=== PATIENT | female | born 1945 | race Caucasian/White ===

== ENCOUNTER 2017-10-31 10:35 | Inpatient (IN) ==
--- NOTE | 2017-10-31 11:20 | Emergency Department Note ---
Disposition Clinical Impression: Diverticulitis Disposition: Admitted As Inpatient Condition: Fair General Adult HPI - General Chief complaint: ED Abdominal Pain Stated complaint: nausea,constipation Time Seen by Provider: 10/31/17 10:42 Source: patient Mode of arrival: ambulatory Limitations: no limitations Nursing Notes Reviewed: Yes Vital Signs Reviewed: Yes - History of Present Illness HPI Narrative: Patient is a 72-year-old female presenting with abdominal pain, constipation and nausea. Patient has history of diverticulitis and bowel resection 45 years ago. Patient states that abdominal pain has been ongoing for the past 2 weeks permissively getting worse, located in the left lower quadrant initially and has radiated currently into the right lower quadrant, described as a sharp ache that is exacerbated with any movement and palpation. She was seen in the emergency department on 10/28/2017, after calling her PCP who directed her to the ER, and had a CAT scan which showed diverticulitis without evidence of abscess or perforation and was discharged at that point in time with Jovanny Beck. Patient states that over the past 3 days she webster also developed nausea with one episode of vomiting, was only able to take one dose of her medications and has been intolerant since that time. She also admits to 7 days without a bowel movement. She currently takes [place] daily for joint pain. She states that she is tried Linzess/ Amitiza per her PCP as well. Patient denies chills, fever, hematemesis, chest pain, shortness of breath, weakness, numbness, tingling. Patient states that she has had multiple episodes of diverticulitis in the past , had been admitted in the past, and stated repeatedly that she would need to be admitted today as she does not feel as though she would be able to manage her care at home, as she lives alone. Pain Scale: 8 - Related Data Home Medications Medication Instructions Recorded Confirmed Atenolol [Tenormin] 50 mg PO DAILY 03/08/17 03/08/17 Doxepin HCl 75 mg PO DAILY 03/08/17 03/08/17 Fluticasone Propionate Nasal 1 spr NS BID 03/08/17 03/08/17 [Flonase] HYDROcodone/Acet 5/325 mg [[place] 1 tab PO Q6H 03/08/17 03/08/17 5-325 mg] LORazepam [Ativan] 1 mg PO BID 03/08/17 03/08/17 Linaclotide [Linzess] 72 mcg PO DAILY 03/08/17 03/08/17 Pravastatin Sodium [Pravachol] 20 mg PO DAILY 03/08/17 03/08/17 Sertraline [Zoloft] 100 mg PO DAILY 03/08/17 03/08/17 Previous Rx's Medication Instructions Recorded Ciprofloxacin [Cipro] 500 mg PO BID #20 tablet 10/28/17 HYDROcodone/Acet 5/325 mg [[place] 1 tab PO Q6H PRN 2 Days #8 tab 10/28/17 5-325 mg] metroNIDAZOLE [Flagyl] 500 mg PO TID #30 tablet 10/28/17 Allergies Allergy/AdvReac Type Severity Reaction Status Date / Time codeine Allergy Swelling Verified 10/31/17 10:41 of Lip/Tongue/Throat Penicillins Allergy Swelling Verified 10/31/17 10:41 of Lip/Tongue/Throat prednisone Allergy Itching Verified 10/31/17 10:41 acetaminophen [From Percocet] AdvReac Itching Verified 10/31/17 10:41 Hydromorphone [From Dilaudid] AdvReac Flushing Verified 10/31/17 10:41 Oxycodone [From Percocet] AdvReac Itching Verified 10/31/17 10:41 All systems ED: reviewed and negative except as stated. Review of Systems: As Per HPI Constitutional: Denies: fever, chills, weakness Cardiovascular: Denies: chest pain, palpitations, dyspnea on exertion, syncope Respiratory: Denies: cough, dyspnea, wheezes Gastrointestinal: Reports: abdominal pain, nausea, vomiting, constipation. Denies: diarrhea, hematemesis, melena, hematochezia Genitourinary: Denies: urgency, dysuria, frequency, hematuria Musculoskeletal: Reports: back pain (chronic) Integumentary: Denies: rash Neurological: Denies: headache, weakness, numbness, confusion Psychiatric: Reports: depression Endocrine: Denies: fatigue Past Medical History - Past Medical History Medical history: Reports: arthritis, asthma, COPD, hyperlipidemia, hypertension Surgical history: Reports: orthopedic, other, sinus surgery Psychiatric history: Reports: depression - Social History Smoking Status: Never smoker Smokeless Tobacco Status: No Alcohol use: Reports: none Drug use: Reports: none Physical Exam - General Limitations: no limitations General appearance: alert, in no apparent distress - Head Head exam: atraumatic, normocephalic - Eye Eye exam: Present: normal appearance, EOMI - ENT ENT exam: normal exam, mucous membranes moist - Neck Neck exam: Present: normal inspection - Chest Chest inspection: Present: normal inspection, symmetric chest wall rise - Respiratory Respiratory exam: Present: normal lung sounds bilaterally. Absent: respiratory distress, wheezes - Cardiovascular Cardiovascular exam: Present: regular rate, normal rhythm - Abdominal Exam Abdominal exam: Present: soft, tenderness (to the LLQ, throughout the RLQ, diffuse tenderness throughout), normal bowel sounds. Absent: distention, guarding, rebound, rigidity - Extremities Exam Extremities exam: Present: normal inspection, normal capillary refill. Absent: tenderness - Expanded Lower Extremity Exam Neurovascular/Tendon exam: Present: normal capillary refill. Absent: pulse deficit - Neurological Exam Neurological exam: Present: alert, oriented X3 - Psychiatric Psychiatric exam: Present: normal affect - Skin Skin exam: Present: warm, dry, intact Course Course Narrative: We will order a CBC, BMP, LFT, lipase, EKG, CT noncontrast of the abdomen and pelvis for further evaluation. Vital Signs Temperature 98.1 F 10/31/17 10:38 Pulse Rate 88 10/31/17 10:38 Respiratory Rate 16 10/31/17 10:38 Blood Pressure 131/88 10/31/17 10:38 O2 Sat by Pulse Oximetry 96 10/31/17 10:38 Temperature 98.1 F 10/31/17 10:42 Pulse Rate 89 10/31/17 12:53 Respiratory Rate 16 10/31/17 12:53 Blood Pressure 140/81 10/31/17 12:53 O2 Sat by Pulse Oximetry 93 10/31/17 12:53 Oxygen Delivery Oxygen Delivery Room Air Medical Decision Making - [facility] Narrative Medical decision making narrative: Patient is a 72-year-old female presented with abdominal pain, nausea, constipation. While emergency department, patient was evaluated with CBC, BMP, EKG, CT noncontrast of the abdomen and pelvis, LFT and lipase. Laboratory results showed unremarkable CBC, BMP, LFT and lipase with in normal limits. While in the emergency department, patient has remained afebrile with normal vital signs, patient has appeared tearful throughout the emergency department stay, as she "has to be admitted ". It was discussed at length at the beginning of the visit, that the workup and decision to admit would be based upon further workup, medical necessity and patient's ability to take medications at home. While in the emergency department, patient was given a total of 8 mg IV Zofran, Tylenol 1000 mg by mouth with fluids. Overall patient continues to have some nausea, but feels as though pain overall has decreased. CT of the abdomen and pelvis showed stool throughout, with diffuse colonic diverticulosis with continued mild distal transverse colon diverticulitis. With this finding, patient's inability to take medication at home, failed outpatient therapy, it was discussed with the patient that at this point in time it is best for her to be admitted for further treatment. Patient was discussed with hospitalist at 1331, Dr. Reynaga and has accepted patient. Will start Cipro and Flagyl antibiotics now. - Medical Records Medical records reviewed: Yes I reviewed the patient's medical records. - Lab Data Lab results reviewed: Yes I reviewed the patient's lab results. Result diagrams: 10/31/17 11:19 10/31/17 11:19 Lab Results 10/31/17 10/31/17 10/31/17 Range/Units 11:19 11:19 12:04 WBC 7.8 (4.3-11.1) K/mcL RBC 4.48 (3.82-4.97) M/mcL Hgb 13.6 (11.5-15.4) g/dL Hct 40.9 (35.3-44.9) % MCV 91.3 (83.0-100.0) fL MCH 30.4 (28.0-33.3) pg MCHC 33.3 (31.6-35.5) g/dL RDW 12.6 (11.5-14.5) % Plt Count 289 (140-400) K/mcL MPV 9.3 L (9.4-12.4) fL Immature Gran % 0.3 (0-4) % Seg Neutrophils % 75.9 % Lymphocytes % 13.2 % Monocytes % 8.3 % Eosinophils % 1.7 % Basophils % 0.6 % Neutrophils # 6.0 (1.6-8.9) K/mcL Lymphocytes # 1.0 (0.6-4.6) K/mcL Monocytes # 0.7 (0.0-1.3) K/mcL Eosinophils # 0.1 (0.0-0.6) K/mcL Basophils # 0.1 (0.0-0.2) K/mcL Sodium 135 L (136-145) mEq/L Potassium 3.8 (3.5-5.1) mEq/L Chloride 101 (98-107) mEq/L Carbon Dioxide 25 (23-29) mEq/L BUN 12 (8-23) mg/dL Creatinine 0.66 (0.60-1.20) mg/dL Est GFR ( Amer) > 60 (> 60) Est GFR (Non-Af Amer) > 60 (> 60) BUN/Creatinine Ratio 18 (6-26) Glucose 96 (70-105) mg/dL Calculated Osmolality 280 (280-300) Calcium 9.6 (8.6-10.3) mg/dL Total Bilirubin 0.4 (0.3-1.0) mg/dL Direct Bilirubin 0.1 (0.0-0.2) mg/dL Indirect Bilirubin 0.3 (0.0-1.2) mg/dL AST 14 (13-39) Units/L ALT 8 (7-52) Units/L Alkaline Phosphatase 68 (34-104) Units/L Serum Total Protein 7.1 (6.4-8.9) g/dL Albumin 4.2 (3.5-5.7) g/dL Globulin 2.9 (2.4-3.5) g/dL Albumin/Globulin Ratio 1.4 (1.1-2.2) Lipase 7 L (11-82) Units/L Urine Color Yellow (Yellow) Urine Clarity Cloudy A (Clear) Urine pH 6.0 (5.0-8.0) pH Units Ur Specific [place] 1.012 (1.010-1.025) Urine Protein Negative (Neg-Trace) mg/dL Urine Glucose (UA) Normal (Normal) mg/dL Urine Ketones Negative (Negative) mg/dL Urine Blood Negative (Negative) Urine Nitrite Negative (Negative) Urine Bilirubin Negative (Negative) Urine Urobilinogen Normal (Normal) mg/dL Ur Leukocyte Esterase Moderate H (Negative) Urine Microscopic RBC 0-3 (0-3) per hpf Urine Microscopic WBC 5-15 H (0-3) per hpf Ur Squamous Epith Cells Many H (None-Few) per lpf Urine Bacteria None Seen (None-Few) per hpf Hyaline Casts None Seen (None-Few) per lpf Ur Culture Indicated? NO. A (NO) - Radiology Data Radiology results reviewed: Yes I reviewed the patient's radiology results. Abdomen/Pelvis CT 10/31/17 11:23 IMPRESSION: Severe colonic diverticulosis with new mild uncomplicated diverticulitis of the distal transverse colon D/ / Bg Campos MD / Bg Campos MD Interpreting Provider: Bg Campos MD - EKG Data EKG #1 EKG attestation: Yes I reviewed and interpreted this EKG. EKG results narrative: EKG performed on 10/31/2017 1141 with ventricular rate of 93 bpm, regular rhythm, left axis deviation, no evidence of hypertrophy, MO interval at 142, QRS duration 90, QT 352, QTC of 402, T-wave inversion at V2, no ST elevation. When compared to previous EKG there are: no significant changes (from 05/19/2011) S.B.A.Cheikh. - S.B.ADayron Situation: Demographics, MOA Background: Presenting Complaint, Relevant PMH, Meds, & Allergies Assessment: Vital Signs, Course and respsone to treatment, Patient/Family Expectation, Pertinant Lab Results Recommendation: Recommendation based on pending studies, treatments, or consults S.B.ADayron Report Given to: Dr. Juhi Inman Repor Time: 13:29 (accepted)
[2017-10-31] MEDS ORDERED: 0.9 % Sodium Chloride 1,000 ML IVC ONE (11:22)
[2017-10-31] MEDS ORDERED: Ondansetron 4 MG/2 ML VIAL IVP ONE ×2 (11:22→12:36)
[2017-10-31 11:32] LABS: Basophils # 0.1 K/mcL (0.0-0.2); Basophils % 0.6 %; Eosinophils # 0.1 K/mcL (0.0-0.6); Eosinophils % 1.7 %; Hematocrit 40.9 % (35.3-44.9); Hemoglobin 13.6 g/dL (11.5-15.4); Immature Granulocytes % 0.3 % (0-4); Lymphocytes % 13.2 %; Mean Corpuscular HGB Conc 33.3 g/dL (31.6-35.5); Mean Corpuscular Hemoglobin 30.4 pg (28.0-33.3); Mean Corpuscular Volume 91.3 fL (83.0-100.0); Mean Platelet Volume 9.3 fL (9.4-12.4); Monocytes # 0.7 K/mcL (0.0-1.3); Monocytes % 8.3 %; Platelet Count 289 K/mcL (140-400); Red Blood Count 4.48 M/mcL (3.82-4.97); Red Cell Distribution Width 12.6 % (11.5-14.5); Segmented Neutrophils % 75.9 %
[2017-10-31 11:53] LABS: Alanine Aminotransferase 8 Units/L (7-52); Albumin 4.2 g/dL (3.5-5.7); Albumin/Globulin Ratio 1.4 (1.1-2.2); Alkaline Phosphatase 68 Units/L (34-104); Aspartate Amino Transferase 14 Units/L (13-39); BUN/Creatinine Ratio 18 (6-26); Bilirubin,Direct 0.1 mg/dL (0.0-0.2); Bilirubin,Indirect 0.3 mg/dL (0.0-1.2); Bilirubin,Total 0.4 mg/dL (0.3-1.0); Blood Urea Nitrogen 12 mg/dL (8-23); Calcium 9.6 mg/dL (8.6-10.3); Carbon Dioxide 25 mEq/L (23-29); Chloride 101 mEq/L (98-107); Globulin 2.9 g/dL (2.4-3.5); Glucose 96 mg/dL (70-105); Lipase 7 Units/L (11-82); Osmolality,Calculated 280 (280-300); Potassium 3.8 mEq/L (3.5-5.1); Sodium 135 mEq/L (136-145); Total Protein 7.1 g/dL (6.4-8.9); eGFR For Non-African Americans > 60 (> 60)
[2017-10-31 12:11] LABS: Bilirubin,Urine Negative (Negative); Blood,Urine Negative (Negative); Clarity,Urine Cloudy (Clear); Color,Urine Yellow (Yellow); Glucose,Urine (UA) Normal (Normal); Ketones,Urine Negative (Negative); Leukocyte Esterase,Urine Moderate (Negative); Nitrite,Urine Negative (Negative); Protein,Urine Negative (Neg-Trace); Specific Gravity,Urine 1.012 (1.010-1.025); Urobilinogen,Urine Normal (Normal)
[2017-10-31 12:14] LABS: Bacteria,Urine None Seen per hpf (None-Few); Hyaline Casts,Urine None Seen per lpf (None-Few); RBC,Urine 0-3 per hpf (0-3); Squamous Epithelial Cell,Urine Many per lpf (None-Few)
[2017-10-31] MEDS ORDERED: MetroNIDAZOLE 500 MG/100 ML 500 MG/100 ML BAG IVPB ONE (13:30)
[2017-10-31] MEDS ORDERED: Naloxone 0.4 MG/ML INJ IVP PRN (13:30)
[2017-10-31] MEDS ORDERED: OXYCODONE Oral CONC 10 MG/0.5 ML ORAL.SYG SL PRN (13:50)
[2017-10-31] MEDS ORDERED: Fluconazole 100 MG TABLET PO ONE (13:52)
--- NOTE | 2017-10-31 14:09 | Internal Med History&Physical ---
Date of Encounter: 10/31/17 Time of Encounter: 13:40 Internal Medicine - H&P: HPI Chief complaint: Abdominal pain, nausea, vomiting History of present illness: Ms. Crowder is a 72 year old female with past medical history of recurrent diverticulitis status post partial colectomy remotely, asthma/COPD, HTN, HLD presented to the ED with left sided abdominal pain associated with nausea and vomiting. Sharp, localized, nonradiating, no aggravating or relieving factor. She however was constipated for the last 7 days. Denies dysuria, hematuria, urinary frequency. No fever/chills. She was seen in the ED 3 days ago for the same symptom when the CT scan suggested findings of diverticulitis vs. colitis. She was discharged home on PO cipro/flagyl but she was unable to tolerate them and vomited them every single time she tried. She has only been able to sip on drinks for the last 3 days. She also states that she developed some vaginal discharges that she was previously diagnosed with yeast infection. In the ED, she was afebrile and hemodynamically stable. Rapport was essentially unchanged from 3 days ago. Urinalysis is again positive for moderate leukocyte esterase. Patient was given IV Tylenol, IV fluid, IV Cipro/Flagyl, and admitted for further management. Of note, a verified with the patient directly whether she was allergic to oxycodone. She states that she is allergic to hydromorphone and codeine but is not aware of her allergy to oxycodone. Past Med Surg Social Fam HX - Past Medical History Attestation: Yes The following information was validated with the patient. Medical history: arthritis, asthma, COPD, hyperlipidemia, hypertension Psychiatric history: depression - Past Surgical History Surgical History: orthopedic, other, sinus surgery Additional surgical history: bowel resection. ortho- bilateral feet - Social History Smoking Status: Never smoker Smokeless Tobacco Status: No Alcohol use: none Drug use: none Internal Medicine - H&P: Meds Atenolol [Tenormin] 50 mg PO DAILY 03/08/17 [History] Doxepin HCl 75 mg PO DAILY 03/08/17 [History] Fluticasone Propionate Nasal [Flonase] 1 spr NS BID 03/08/17 [History] HYDROcodone/Acet 5/325 mg [[place] 5-325 mg] 1 tab PO Q6H 03/08/17 [History] LORazepam [Ativan] 1 mg PO BID 03/08/17 [History] Linaclotide [Linzess] 72 mcg PO DAILY 03/08/17 [History] Pravastatin Sodium [Pravachol] 20 mg PO DAILY 03/08/17 [History] Sertraline [Zoloft] 100 mg PO DAILY 03/08/17 [History] Ciprofloxacin [Cipro] 500 mg PO BID #20 tablet 10/28/17 [Rx] HYDROcodone/Acet 5/325 mg [[place] 5-325 mg] 1 tab PO Q6H PRN 2 Days #8 tab [Rx] metroNIDAZOLE [Flagyl] 500 mg PO TID #30 tablet 10/28/17 [Rx] 3 Allergy/AdvReac Type Severity Reaction Status Date / Time codeine Allergy Swelling Verified 10/31/17 10:41 of Lip/Tongue/Throat Penicillins Allergy Swelling Verified 10/31/17 10:41 of Lip/Tongue/Throat prednisone Allergy Itching Verified 10/31/17 10:41 acetaminophen [From Percocet] AdvReac Itching Verified 10/31/17 10:41 Hydromorphone [From Dilaudid] AdvReac Flushing Verified 10/31/17 10:41 Oxycodone [From Percocet] AdvReac Itching Verified 10/31/17 10:41 All Systems PM: A 10-system review of systems was performed and is negative for pertinent findings except as documented above in the HPI. - Constitutional Vitals: Temp Pulse Resp BP Pulse Ox 98.1 F 89 16 140/81 93 10/31/17 10:42 10/31/17 12:53 10/31/17 12:53 10/31/17 12:53 10/31/17 12:53 Exam: General: Alert and oriented, mild distress due to discomfort HEENT:EOM, pupils equal, round, and reactive. Cardiovascular:Normal S1 & S2, no murmurs or gallops. No JVD. Pulse regular. Lungs:Normal breath sounds, no wheezes or crackles. Abdomen:Soft, LUQ tenderness without rebound/guarding, no rigidity. Extremities:No deformity, no edema or tenderness, no joint swelling. Neurological:Normal cognition and motor skills. Skin:Normal color, no rash, no lesions. Pulses:Carotid and radial pulses normal +2. Rest of the physical exam is non-contributory Internal Med - H&P Results - Labs CBC & Chem 7: 10/31/17 11:19 10/31/17 11:19 - Assessment and plan (1) Diverticulitis Current Visit: Yes Status: Acute Assessment and plan: Repeat CT scan showed new findings of mild uncompensated diverticulitis of distal transverse colon. She was intolerant to oral antibiotics and had persistent vomiting. Switch Cipro Flagyl to IV Nothing by mouth, IV fluid trial of suppository given prolonged constipation Antiemetics and analgesics as prescribed. Patient does not appear to true allergy to oxycodone so we can use it for breakthrough pain. (2) Hypertension Current Visit: No Status: Chronic Assessment and plan: Resume home meds when reconciled Qualifiers: Qualified Code(s): I10 - Essential (primary) hypertension (3) HLD (hyperlipidemia) Current Visit: No Status: Chronic Assessment and plan: Continue statin Qualifiers: Hyperlipidemia type: unspecified Qualified Code(s): E78.5 - Hyperlipidemia , unspecified (4) DVT prophylaxis Current Visit: Yes Status: Acute Assessment and plan: Sub-cutaneous heparin - Time Spent With Patient Total time spent is greater than 50% in coordination of care (as documented) at patient's floor/unit and/or counseling patient:
[2017-10-31] MEDS ORDERED: LINACLOTIDE 72 MG PO PRN (14:42)
--- NOTE | 2017-10-31 14:43 | Emergency Department Note ---
Disposition Clinical Impression: Diverticulitis Disposition: Admitted As Inpatient Condition: Fair Referrals: Nellie Latif MD [Primary Care Provider] - Abdominal Pain HPI - General Chief Complaint: ED Abdominal Pain Stated Complaint: nausea,constipation Time Seen by Provider: 10/31/17 10:42 Source: patient Mode of arrival: ambulatory Nursing Notes Reviewed: Yes Vital Signs Reviewed: Yes - History of Present Illness Pain Scale: 8 - Related Data Home Medications Medication Instructions Recorded Confirmed Doxepin HCl 75 mg PO DAILY 03/08/17 10/31/17 Fluticasone Propionate Nasal 1 spr NS BID 03/08/17 10/31/17 [Flonase] HYDROcodone/Acet 5/325 mg [[place] 0.5 - 1 tab PO BID PRN 03/08/17 10/31/17 5-325 mg] Pravastatin Sodium [Pravachol] 20 mg PO DAILY 03/08/17 10/31/17 Sertraline [Zoloft] 150 mg PO DAILY 03/08/17 10/31/17 Etodolac [L[place]] 400 mg PO BID 10/31/17 10/31/17 Hydrochlorothiazide [Microzide] 12.5 mg PO DAILY 10/31/17 10/31/17 LORazepam [Lorazepam] 2 mg PO TID 10/31/17 10/31/17 Linaclotide [Linzess] 72 mg PO DAILY PRN 10/31/17 10/31/17 Previous Rx's Medication Instructions Recorded Ciprofloxacin [Cipro] 500 mg PO BID #20 tablet 10/28/17 metroNIDAZOLE [Flagyl] 500 mg PO TID #30 tablet 10/28/17 Allergies Allergy/AdvReac Type Severity Reaction Status Date / Time codeine Allergy Swelling Verified 10/31/17 10:41 of Lip/Tongue/Throat Penicillins Allergy Swelling Verified 10/31/17 10:41 of Lip/Tongue/Throat prednisone Allergy Itching Verified 10/31/17 10:41 acetaminophen [From Percocet] AdvReac Itching Verified 10/31/17 10:41 Hydromorphone [From Dilaudid] AdvReac Flushing Verified 10/31/17 10:41 Oxycodone [From Percocet] AdvReac Itching Verified 10/31/17 10:41 Constitutional: Denies: fever, chills, weakness Cardiovascular: Denies: chest pain, palpitations, dyspnea on exertion, syncope Respiratory: Denies: cough, dyspnea, wheezes Gastrointestinal: Reports: abdominal pain, nausea, vomiting, constipation. Denies: diarrhea, hematemesis, melena, hematochezia Genitourinary: Denies: urgency, dysuria, frequency, hematuria Musculoskeletal: Reports: back pain (chronic) Integumentary: Denies: rash Neurological: Denies: headache, weakness, numbness, confusion Psychiatric: Reports: depression Endocrine: Denies: fatigue Abdominal Pain PMH - Past Medical History Medical history: Reports: arthritis, asthma, COPD, hyperlipidemia, hypertension Female Surgical History: Reports: other Psychiatric history: Reports: depression - Social History Smoking status: Never smoker Alcohol use: Reports: none Drug use: Reports: none Physical Exam - General Limitations: no limitations General appearance: alert, in no apparent distress Course Vital Signs Temperature 98.1 F 10/31/17 10:38 Pulse Rate 88 10/31/17 10:38 Respiratory Rate 16 10/31/17 10:38 Blood Pressure 131/88 10/31/17 10:38 O2 Sat by Pulse Oximetry 96 10/31/17 10:38 Temperature 98.1 F 10/31/17 10:42 Pulse Rate 89 10/31/17 12:53 Respiratory Rate 16 10/31/17 12:53 Blood Pressure 140/81 10/31/17 12:53 O2 Sat by Pulse Oximetry 93 10/31/17 12:53 Oxygen Delivery Oxygen Delivery Room Air Abdominal Pain - Lab Data Result diagrams: 10/31/17 11:19 10/31/17 11:19 Lab Results 10/31/17 10/31/17 10/31/17 Range/Units 11:19 11:19 12:04 WBC 7.8 (4.3-11.1) K/mcL RBC 4.48 (3.82-4.97) M/mcL Hgb 13.6 (11.5-15.4) g/dL Hct 40.9 (35.3-44.9) % MCV 91.3 (83.0-100.0) fL MCH 30.4 (28.0-33.3) pg MCHC 33.3 (31.6-35.5) g/dL RDW 12.6 (11.5-14.5) % Plt Count 289 (140-400) K/mcL MPV 9.3 L (9.4-12.4) fL Immature Gran % 0.3 (0-4) % Seg Neutrophils % 75.9 % Lymphocytes % 13.2 % Monocytes % 8.3 % Eosinophils % 1.7 % Basophils % 0.6 % Neutrophils # 6.0 (1.6-8.9) K/mcL Lymphocytes # 1.0 (0.6-4.6) K/mcL Monocytes # 0.7 (0.0-1.3) K/mcL Eosinophils # 0.1 (0.0-0.6) K/mcL Basophils # 0.1 (0.0-0.2) K/mcL Sodium 135 L (136-145) mEq/L Potassium 3.8 (3.5-5.1) mEq/L Chloride 101 (98-107) mEq/L Carbon Dioxide 25 (23-29) mEq/L BUN 12 (8-23) mg/dL Creatinine 0.66 (0.60-1.20) mg/dL Est GFR ( Amer) > 60 (> 60) Est GFR (Non-Af Amer) > 60 (> 60) BUN/Creatinine Ratio 18 (6-26) Glucose 96 (70-105) mg/dL Calculated Osmolality 280 (280-300) Calcium 9.6 (8.6-10.3) mg/dL Total Bilirubin 0.4 (0.3-1.0) mg/dL Direct Bilirubin 0.1 (0.0-0.2) mg/dL Indirect Bilirubin 0.3 (0.0-1.2) mg/dL AST 14 (13-39) Units/L ALT 8 (7-52) Units/L Alkaline Phosphatase 68 (34-104) Units/L Serum Total Protein 7.1 (6.4-8.9) g/dL Albumin 4.2 (3.5-5.7) g/dL Globulin 2.9 (2.4-3.5) g/dL Albumin/Globulin Ratio 1.4 (1.1-2.2) Lipase 7 L (11-82) Units/L Urine Color Yellow (Yellow) Urine Clarity Cloudy A (Clear) Urine pH 6.0 (5.0-8.0) pH Units Ur Specific [place] 1.012 (1.010-1.025) Urine Protein Negative (Neg-Trace) mg/dL Urine Glucose (UA) Normal (Normal) mg/dL Urine Ketones Negative (Negative) mg/dL Urine Blood Negative (Negative) Urine Nitrite Negative (Negative) Urine Bilirubin Negative (Negative) Urine Urobilinogen Normal (Normal) mg/dL Ur Leukocyte Esterase Moderate H (Negative) Urine Microscopic RBC 0-3 (0-3) per hpf Urine Microscopic WBC 5-15 H (0-3) per hpf Ur Squamous Epith Cells Many H (None-Few) per lpf Urine Bacteria None Seen (None-Few) per hpf Hyaline Casts None Seen (None-Few) per lpf Ur Culture Indicated? NO. A (NO) Attestation Statement - Attestation Attestation: I, Suman Mckenna, examined this patient and my medical decision-making was reviewed with the [employer] CONT[employer] OPERATOR/PA/Advanced Practice Nurse/Resident Physician. I agree with the documented findings, disposition and treatment plan as described except to the extent set forth below. 72-year-old female presents emergency Department with concerns of persistent nausea and vomiting, abdominal pain. Patient states she was recently diagnosed with diverticulitis by CT of the abdomen 4 days ago.. She is only able to take a couple of her medications over the past few days because of nausea and vomiting. Patient had persistent diverticulitis on repeat CT scan. She does not feel comfortable to return home. She states she will not be able to tolerate by mouth intake at home. She will be admitted for further care and evaluation of diverticulitis
[2017-10-31] MEDS: *HR* LORazepam 1 MG TABLET PO SCH ×2 (16:07→20:04)
[2017-10-31] MEDS: Bisacodyl 10 MG RECTAL SUPPOSITORY RC SCH (16:08)
[2017-10-31] MEDS: 0.9 % Sodium Chloride 1,000 ML IVC SCH (16:09)
[2017-10-31] MEDS: *HR* Heparin 5,000 UNIT/ML VIAL SQ SCH (17:51)
[2017-10-31] MEDS: Ketorolac 15 MG/ML VIAL IVP PRN (20:05)
[2017-10-31] MEDS: MetroNIDAZOLE 500 MG/100 ML 500 MG/100 ML BAG IVPB SCH (23:32)
[2017-10-31] MEDS: Fluticasone Propionate Nasal 50 MCG/SPRAY BOTTLE NS SCH (23:35)
[2017-11-01] MEDS: 0.9 % Sodium Chloride 1,000 ML IVC SCH (02:10)
[2017-11-01] MEDS: *HR* Heparin 5,000 UNIT/ML VIAL SQ SCH ×2 (05:11→18:07)
[2017-11-01 06:13] LABS: Basophils # 0.1 K/mcL (0.0-0.2); Basophils % 0.8 %; Eosinophils # 0.1 K/mcL (0.0-0.6); Eosinophils % 1.8 %; Hematocrit 36.2 % (35.3-44.9); Immature Granulocytes % 0.2 % (0-4); Lymphocytes # 1.1 K/mcL (0.6-4.6); Lymphocytes % 17.6 %; Mean Corpuscular Hemoglobin 29.7 pg (28.0-33.3); Mean Corpuscular Volume 92.8 fL (83.0-100.0); Mean Platelet Volume 9.6 fL (9.4-12.4); Monocytes # 0.6 K/mcL (0.0-1.3); Monocytes % 9.4 %; Neutrophils # 4.3 K/mcL (1.6-8.9); Platelet Count 270 K/mcL (140-400); Red Cell Distribution Width 12.8 % (11.5-14.5); Segmented Neutrophils % 70.2 %
[2017-11-01 06:14] LABS: Hemoglobin 11.6 g/dL (11.5-15.4)
[2017-11-01 06:32] LABS: BUN/Creatinine Ratio 12 (6-26); Blood Urea Nitrogen 8 mg/dL (8-23); Calcium 8.7 mg/dL (8.6-10.3); Carbon Dioxide 27 mEq/L (23-29); Chloride 108 mEq/L (98-107); Glucose 84 mg/dL (70-105); Magnesium 2.1 mg/dL (1.6-2.6); Osmolality,Calculated 288 (280-300); Potassium 3.9 mEq/L (3.5-5.1); Sodium 140 mEq/L (136-145); eGFR For Non-African Americans > 60 (> 60)
[2017-11-01] MEDS: *HR* LORazepam 1 MG TABLET PO SCH ×3 (08:38→21:12)
[2017-11-01] MEDS: hydroCHLOROthiazide 25 MG TABLET PO SCH (08:39)
[2017-11-01] MEDS: MetroNIDAZOLE 500 MG/100 ML 500 MG/100 ML BAG IVPB SCH ×4 (08:40→23:49)
[2017-11-01] MEDS: Bisacodyl 10 MG RECTAL SUPPOSITORY RC SCH (08:40)
[2017-11-01] MEDS: Fluticasone Propionate Nasal 50 MCG/SPRAY BOTTLE NS SCH ×2 (08:41→21:22)
[2017-11-01] MEDS: Ketorolac 15 MG/ML VIAL IVP PRN ×2 (08:47→17:59)
--- NOTE | 2017-11-01 10:07 | Internal Med Progress Note ---
Date of Encounter: 11/01/17 Time of Encounter: 09:00 - Assessment and plan (1) Diverticulitis Current Visit: Yes Status: Acute Assessment and plan: Was first seen the ED 4 days ago and was discharged home with oral antibiotics but came back yesterday. Repeat CT scan showed new findings of mild uncompensated diverticulitis of distal transverse colon. She was intolerant to oral antibiotics and had persistent vomiting. Improving with IV Cipro/flagyl D2 trial of clears today, continue IV fluid Antiemetics and analgesics as prescribed. Patient does not appear to true allergy to oxycodone so we can use it for breakthrough pain. (2) Constipation Current Visit: Yes Status: Acute Assessment and plan: Significant stool burden noted on the CT, did not had bowel movement despite suppository will try lactulose today and if not successful, will have to attempt enema Qualifiers: Constipation type: unspecified constipation type Qualified Code(s): K59.00 - Constipation, unspecified (3) Hypertension Current Visit: No Status: Chronic Assessment and plan: Resume home meds Qualifiers: Qualified Code(s): I10 - Essential (primary) hypertension (4) HLD (hyperlipidemia) Current Visit: No Status: Chronic Assessment and plan: Continue statin Qualifiers: Hyperlipidemia type: unspecified Qualified Code(s): E78.5 - Hyperlipidemia , unspecified (5) DVT prophylaxis Current Visit: Yes Status: Acute Assessment and plan: Subcutaneous heparin - Subjective Interval history: States that she feels a little bit better than yesterday, nausea has significantly improved. Denies fever/chills. Has not had a bowel movement yet despite taking suppository; just had "hard pepples" coming out. - Constitutional Vitals: Temp Pulse Resp BP Pulse Ox 98.2 F 71 15 112/73 92 11/01/17 06:46 11/01/17 06:46 11/01/17 06:46 11/01/17 06:46 11/01/17 06:46 Exam: General: Alert and oriented, not in distress Cardiovascular:Normal S1 & S2, no murmurs or gallops. No JVD. Pulse regular. Lungs:Normal breath sounds, no wheezes or crackles. Abdomen:Soft, minimal LUQ tenderness without rebound/guarding, no rigidity. Internal Medicine: Result - Labs CBC & Chem 7: 11/01/17 04:57 07/30/18 04:57 Labs: Short CBC 11/01/17 Range/Units 04:57 WBC 6.1 (4.3-11.1) K/mcL Hgb 11.6 D (11.5-15.4) g/dL Hct 36.2 (35.3-44.9) % Plt Count 270 (140-400) K/mcL Neutrophils # 4.3 (1.6-8.9) K/mcL BMP 11/01/17 04:57 Sodium 140 Potassium 3.9 Chloride 108 H Carbon Dioxide 27 BUN 8 Creatinine 0.65 Glucose 84 Calcium 8.7 Consult Discharge Plan - Plan Referrals: Nellie Latif MD [Primary Care Provider] -
[2017-11-01] MEDS: Lactulose Oral Soln 20 GM/30 ML UDC PO SCH ×2 (12:01→21:12)
[2017-11-01] MEDS: *HR* Promethazine 25 MG/ML VIAL IVP PRN (13:03)
--- NOTE | 2017-11-01 17:22 | Electrocardiograph Report ---
[place] [id number] Test Date: 2017-10-31 Pat Name: Samantha Crowder Department: 103 Room: 3B23 Gender: F [employer] Identification Technician: KALIN : 1945 Requested By: Nilo Mike Order Number: [id number] Reading MD: Sarah Godoy Measurements Intervals [place] Rate: 93 P: 63 AK: 142 QRS: -22 QRSD: 90 T: 28 QT: 352 QTc: 402 Interpretive Statements SINUS RHYTHM WITH OCCASIONAL SUPRAVENTRICULAR PREMATURE COMPLEXES BORDERLINE LEFT AXIS DEVIATION [QRS AXIS < -20] Electronically Signed On 11-01-2017 17:21:11 EDT by Sarah Godoy
[2017-11-02] MEDS: *HR* Heparin 5,000 UNIT/ML VIAL SQ SCH ×2 (06:56→17:21)
[2017-11-02] MEDS: Lactulose Oral Soln 20 GM/30 ML UDC PO SCH ×2 (08:49→21:34)
[2017-11-02] MEDS: MetroNIDAZOLE 500 MG/100 ML 500 MG/100 ML BAG IVPB SCH (08:50)
[2017-11-02] MEDS: hydroCHLOROthiazide 25 MG TABLET PO SCH (08:50)
[2017-11-02] MEDS: *HR* LORazepam 1 MG TABLET PO SCH ×3 (08:50→23:00)
[2017-11-02] MEDS: Fluticasone Propionate Nasal 50 MCG/SPRAY BOTTLE NS SCH ×2 (09:00→23:03)
[2017-11-02] MEDS: Bisacodyl 10 MG RECTAL SUPPOSITORY RC SCH (09:00)
[2017-11-02] MEDS ORDERED: Glycerin RECTAL Suppository RC ONE (11:58)
--- NOTE | 2017-11-02 16:39 | Internal Med Progress Note ---
Hospitalist Progress Note - Encounter Date of Encounter: 11/02/17 Time of Encounter: 09:35 - Subjective Interval History: Patient was seen and assessed at bedside and 9:35 AM. She reports continued left lower quadrant pain, bilateral flank pain and constipation. She reports chronic constipation for years and states that MiraLAX normally works for her. She denies headache, nausea or vomiting, chest pain or shortness of breath. - Exam Vitals: Temp Pulse Resp BP Pulse Ox 98.5 F 66 16 135/83 94 11/02/17 15:25 11/02/17 15:25 11/02/17 15:25 11/02/17 15:25 11/02/17 15:25 Exam: Pt is alert and awake, oriented, speech is clear, Pt without focal neurological deficits, no facial droop, no pronator drift. PERRL , EOMI, no nystagmus. S1S2 heard without gallops, clicks, murmurs, tachycardia or bradycardia. Lungs are clear throughout, abdomen is soft, obese, tender to palpation in LLQ. No peripheral edema, peripheral pulses +2 in upper and lower extremities. - Assessment and Plan (1) Diverticulitis Current Visit: Yes Status: Acute Assessment and Plan: Repeat CT scan 10/31 showed new findings of mild uncompensated diverticulitis of distal transverse colon. She was intolerant to oral antibiotics and had persistent vomiting, failed outpatient. Switch Cipro Flagyl to po for am doses. Clear liquid diet, advance as tolerated, IV fluid trial of suppository given prolonged constipation, pt having small bowel movements, will add tap water enemas. Antiemetics and analgesics as prescribed. Patient does not appear to true allergy to oxycodone so we can use it for breakthrough pain. Abdomen/Pelvis CT 10/31/17 11:23 IMPRESSION: Severe colonic diverticulosis with new mild uncomplicated diverticulitis of the distal transverse colon D/ / Bg Campos MD / Bg Campos MD Interpreting Provider: Bg Campos MD (2) Hypertension Current Visit: No Status: Chronic Assessment and Plan: Stable. Chronic. Continue current medications. (3) DVT prophylaxis Current Visit: Yes Status: Acute Assessment and Plan: Heparin SQ (4) HLD (hyperlipidemia) Current Visit: Yes Status: Chronic Assessment and Plan: Chronic. Continue home dose of statin . (5) Constipation Current Visit: Yes Status: Chronic Assessment and Plan: Pt with chronic constipation, states that she normally takes Miralax at home. Pt has had suppositories and Lactulose with minimal relief. Miralax restarted. Tap water enema ordered. DVT Prophylaxis: Heparin SQ BID - Time Spent with Patient Total time spent is greater than 50% in coordination of care (as documented) at patient's floor/unit and/or counseling patient: less than 15 minutes Plan of Care Discussed with: nurse Internal Medicine: Result - Labs CBC & Chem 7: 11/01/17 04:57 11/01/17 04:57 Consult Discharge Plan - Plan Referrals: Nellie Latif MD [Primary Care Provider] - 11/04/17 1:30 pm (2) Hypertension Qualifiers: Qualified Code(s): I10 - Essential (primary) hypertension (4) HLD (hyperlipidemia) Qualifiers: Hyperlipidemia type: unspecified Qualified Code(s): E78.5 - Hyperlipidemia, unspecified (5) Constipation Qualifiers: Constipation type: unspecified constipation type Qualified Code(s): K59.00 - Constipation, unspecified
[2017-11-02] MEDS: metroNIDAZOLE 500 MG TABLET PO SCH ×2 (17:21→23:00)
[2017-11-02] MEDS: *HR* Promethazine 25 MG/ML VIAL IVP PRN (21:38)
[2017-11-02] MEDS ORDERED: Sennosides/Docusate Sodium TABLET PO PRN (22:12)
[2017-11-03] MEDS: *HR* Heparin 5,000 UNIT/ML VIAL SQ SCH (05:14)
[2017-11-03] MEDS: Lactulose Oral Soln 20 GM/30 ML UDC PO SCH ×3 (08:19→10:14)
[2017-11-03] MEDS: *HR* Promethazine 25 MG/ML VIAL IVP PRN (08:19)
[2017-11-03] MEDS: metroNIDAZOLE 500 MG TABLET PO SCH ×2 (08:19→14:34)
[2017-11-03] MEDS: *HR* LORazepam 1 MG TABLET PO SCH ×2 (08:30→16:03)
[2017-11-03] MEDS: Bisacodyl 10 MG RECTAL SUPPOSITORY RC SCH (08:31)
[2017-11-03] MEDS: hydroCHLOROthiazide 25 MG TABLET PO SCH (08:31)
[2017-11-03] MEDS: Fluticasone Propionate Nasal 50 MCG/SPRAY BOTTLE NS SCH (09:05)
[2017-11-03] MEDS: Ketorolac 15 MG/ML VIAL IVP PRN (10:08)
[2017-11-03 15:38] VITALS: BP 123/77
--- NOTE | 2017-11-03 15:55 | Discharge Summary ---
Date of Encounter: 11/03/17 Time of Encounter: 09:30 - Discharge Diagnosis (1) Diverticulitis Priority: Primary Status: Acute Assessment and Plan: CT scan 10/31 showed new findings of mild uncompensated diverticulitis of distal transverse colon. She was intolerant to oral antibiotics and had persistent vomiting, failed outpatient. Clear liquid diet, advance as tolerated, IV fluid Pt reports constipation, see above. Antiemetics and analgesics as prescribed. Continue PO antibiotics for discharge. Abdomen/Pelvis CT 10/31/17 11:23 IMPRESSION: Severe colonic diverticulosis with new mild uncomplicated diverticulitis of the distal transverse colon D/ / Bg Campos MD / Bg Campos MD Interpreting Provider: Bg Campos MD (2) Hypertension Priority: Secondary Status: Chronic Assessment and Plan: Chronic. Continue current medications. Qualifiers: Qualified Code(s): I10 - Essential (primary) hypertension (3) DVT prophylaxis Priority: Secondary Status: Acute Assessment and Plan: Heparin SQ BID (4) HLD (hyperlipidemia) Priority: Secondary Status: Chronic Assessment and Plan: Chronic. Continue home medication. Qualifiers: Hyperlipidemia type: unspecified Qualified Code(s): E78.5 - Hyperlipidemia , unspecified (5) Constipation Priority: Secondary Status: Chronic Assessment and Plan: Pt with chronic constipation, states that she normally takes Miralax at home. Pt has had suppositories and Lactulose with minimal relief. Miralax restarted, patient has had senna, milk and molasses enema Patient has been on clear liquid diet, likely there is not enough bulk in the colon to have a normal bowel movement. KUB completed today that was unremarkable, patient remains concerned that she has not had a "normal" bowel movement. We will continue MiraLAX at home, will add senna to medication regimen. Encourage patient to increase her fluid intake as well. KUB X-Ray 11/03/17 07:58 IMPRESSION: No acute process in the abdomen. The findings of diverticulitis noted on CT from several days earlier is not assessed on this exam. D/ / 11/03/2017 09:14:53 Adarsh Richards MD / rene Interpreting Provider: Adarsh Richards MD Qualifiers: Constipation type: unspecified constipation type Qualified Code(s): K59.00 - Constipation, unspecified Hospital course: Ms. Crowder is a 72 year old female with past medical history of asthma, hyperlipidemia. Patient admitted for left lower quadrant pain. CAT scan revealed diverticulitis. She is being treated with Flagyl and Cipro. She is improving he reports still some mild nausea, mild tenderness in low abdomen with palpation. She reports both of these are significantly improved over admission. She states that she is tolerating food and fluid well and is ready to go home. She does report that she is not having movements. She has had multiple laxatives, stool softeners, enemas and states that she is just having small bowel movements. Patient has been no clear liquid diet for several days, she may not have enough food in her to have a normal bowel movement. She states normally takes MiraLAX at home, I have added senna when necessary. Patient's vitals are stable, labs were stable, patient will be discharged home and will follow-up with primary care in 3-5 days. Discharge discussed with: patient, nurse - Time Spent with Patient Total time spent providing and/or coordinating discharge services: Less than 30 minutes - Discharge Medications Prescriptions: Ondansetron ODT [Zofran ODT] 4 mg SL Q8HR #12 tab.rapdis Sennosides/Docusate Sodium [Senna Plus] 2 each PO BID PRN #20 tablet PRN Reason: Constipation Home Medications: Doxepin HCl 75 mg PO DAILY 03/08/17 [History] Fluticasone Propionate Nasal [Flonase] 1 spr NS BID 03/08/17 [History] HYDROcodone/Acet 5/325 mg [Ransom 5-325 mg] 0.5 - 1 tab PO BID PRN 03/08/17 [ History] Pravastatin Sodium [Pravachol] 20 mg PO DAILY 03/08/17 [History] Sertraline [Zoloft] 150 mg PO DAILY 03/08/17 [History] Ciprofloxacin [Cipro] 500 mg PO BID #20 tablet 10/28/17 [Rx] metroNIDAZOLE [Flagyl] 500 mg PO TID #30 tablet 10/28/17 [Rx] Etodolac [Lodine] 400 mg PO BID 10/31/17 [History] Hydrochlorothiazide [Microzide] 12.5 mg PO DAILY 10/31/17 [History] LORazepam [Lorazepam] 2 mg PO TID 10/31/17 [History] Linaclotide [Linzess] 72 mg PO DAILY PRN 10/31/17 [History] Ondansetron ODT [Zofran ODT] 4 mg SL Q8HR #12 tab.rapdis 11/03/17 [Rx] Polyethylene Glycol 3350 [MiraLAX] 17 gm PO DAILY powd.pack 11/03/17 [Rx] Sennosides/Docusate Sodium [Senna Plus] 2 each PO BID PRN #20 tablet 11/03/17 [ Rx] Allergies/Adverse Reactions: 3 Allergy/AdvReac Type Severity Reaction Status Date / Time codeine Allergy Swelling Verified 10/31/17 10:41 of Lip/Tongue/Throat Penicillins Allergy Swelling Verified 10/31/17 10:41 of Lip/Tongue/Throat prednisone Allergy Itching Verified 10/31/17 10:41 acetaminophen [From Percocet] AdvReac Itching Verified 10/31/17 10:41 Hydromorphone [From Dilaudid] AdvReac Flushing Verified 10/31/17 10:41 Oxycodone [From Percocet] AdvReac Itching Verified 10/31/17 10:41 Date of admission: 11/02/17 17:02 Primary care physician: Nellie Latif MD Discharging clinician: Nida Petit Anticipated date of discharge: 11/03/17 - Constitutional Vitals: Temp Pulse Resp BP Pulse Ox 98.2 F 66 16 123/77 97 11/03/17 15:37 11/03/17 15:37 11/03/17 15:37 11/03/17 15:37 11/03/17 15:37 General appearance: Present: cooperative, A&O X 3, pleasant, no acute distress, answers questions appropriately - Head Head exam: Present: atraumatic, normal inspection, normocephalic - Eye Eye exam: Present: normal appearance, conjuntiva pink, sclera anicteric - Neck Neck exam general surgery: Present: supple, trachea midline. Absent: lymphadenopathy, tenderness - Respiratory Respiratory exam: Present: CTAB. Absent: accessory muscle use, chest wall tenderness, decreased breath sounds, rales, respiratory distress, rhonchi, wheezes - Cardiovascular Cardiovascular exam: Present: RRR, +S1, +S2. Absent: diastolic murmur, gallop, rubs, systolic murmur - GI/Abdominal GI/Abdominal exam: Present: normal bowel sounds, soft. Absent: distended, hepatomegaly, tenderness - Extremities Exam Extremities exam: Present: normal capillary refill, normal inspection, warm, radial pulses palpable and symmetrical. Absent: calf tenderness, cyanotic, pedal edema, tenderness - Neurological Exam Neurological exam: Present: alert, oriented X3, no focal deficits. Absent: facial droop, speech deficit - Skin Skin exam: Present: dry, intact, normal color, warm. Absent: rash - Patient Status Disposition: Home, Self-Care Condition: Good Functional capacity at discharge: independent ambulation Overall status at discharge: patient is progressing back to baseline - Discharge Instructions Follow Up With: Nellie Latif MD [Primary Care Provider] - 11/04/17 1:30 pm Forms: ED Satisfaction Letter, Work/School Release Additional Instructions: Follow up with PCP in the next 3-5 days for a recheck. Return to the ER as needed for any other problems or concern, of if your symptoms return or worsen. Take your medications as directed. Return to your normal diet and activities as tolerated. Make sure that you are drinking plenty of water daily and try to avoid taking narcotic medications unless it is totally necessary, as they cause constipation.
[2017-11-03] MEDS ORDERED: Milk and Molasses Enema 200 ML RC ONE (16:00)
== END 2017-11-03 17:04 | disposition home or self-care (01) | DRG 392 ==
LOC: 3BNU 10:35 → EMEROO 10:35 → 3BNU 15:05
PROVIDERS: ADMIT Internal Medicine; ATTEND Internal Medicine

== ENCOUNTER 2020-07-10 09:39 | Inpatient (IN) ==
[2020-07-10] MEDS ORDERED: Isovue-370 500 ML BOTTLE IVP ONE (10:03)
[2020-07-10] MEDS ORDERED: Ondansetron 4 MG/2 ML VIAL IVP ONE (10:03)
[2020-07-10] MEDS ORDERED: *HR* FentaNYL (PF) 100 MCG/2 ML VIAL IVP ONE ×2 (10:05→11:55)
[2020-07-10] MEDS ORDERED: 0.9 % Sodium Chloride 1,000 ML IVC ONE (10:06)
[2020-07-10 10:25] LABS: Basophils % 0.2 %; Hematocrit 50.2 % (35.3-44.9); Hemoglobin 16.4 g/dL (11.5-15.4); Immature Granulocytes % 0.2 % (0-4); Lymphocytes % 7.9 %; Mean Corpuscular HGB Conc 32.7 g/dL (31.6-35.5); Mean Corpuscular Hemoglobin 30.2 pg (28.0-33.3); Mean Corpuscular Volume 92.4 fL (83.0-100.0); Mean Platelet Volume 9.8 fL (9.4-12.4); Monocytes # 0.7 K/mcL (0.0-1.3); Monocytes % 5.5 %; Neutrophils # 10.4 K/mcL (1.6-8.9); Platelet Count 279 K/mcL (140-400); Red Blood Count 5.43 M/mcL (3.82-4.97); Segmented Neutrophils % 86.2 %; White Blood Count 12.1 K/mcL (4.3-11.1)
[2020-07-10 10:30] LABS: INR 1.1; Prothrombin Time 13.1 Seconds (9.4-12.1)
[2020-07-10 10:40] LABS: Alanine Aminotransferase 21 Units/L (7-52); Albumin 4.8 g/dL (3.5-5.7); Albumin/Globulin Ratio 1.5 (1.1-2.2); Alkaline Phosphatase 83 Units/L (34-104); Aspartate Amino Transferase 21 Units/L (13-39); BUN/Creatinine Ratio 40 (6-26); Bilirubin,Direct 0.1 mg/dL (0.0-0.2); Bilirubin,Indirect 0.5 mg/dL (0.0-1.0); Bilirubin,Total 0.6 mg/dL (0.3-1.0); Blood Urea Nitrogen 29 mg/dL (8-23); Carbon Dioxide 25 mEq/L (23-29); Chloride 102 mEq/L (98-107); Globulin 3.1 g/dL (2.4-3.5); Glucose 122 mg/dL (70-105); Lipase 5 Units/L (11-82); Osmolality,Calculated 295 (280-300); Potassium 3.6 mEq/L (3.5-5.1); Sodium 139 mEq/L (136-145); Total Protein 7.9 g/dL (6.4-8.9); eGFR For African Americans > 60 (> 60); eGFR For Non-African Americans > 60 (> 60)
[2020-07-10 10:41] LABS: Troponin I < 0.03 ng/mL (< 0.04)
[2020-07-10] MEDS ORDERED: Tetracaine/Benzocaine/Butamben 1 SPRAY AEROSOL MM ONE (12:06)
[2020-07-10] MEDS ORDERED: Tetracaine/Benzocaine/Butamben 1 SPRAY AEROSOL ONE (12:07)
[2020-07-10 12:24] LABS: Bilirubin,Urine Negative (Negative); Blood,Urine Negative (Negative); Clarity,Urine Clear (Clear); Color,Urine Light-Yellow (Yellow); Glucose,Urine (UA) Normal (Normal); Ketones,Urine Trace mg/dL (Negative); Leukocyte Esterase,Urine Negative (Negative); Nitrite,Urine Negative (Negative); PH,Urine 6.5 pH Units (5.0-8.0); Protein,Urine Trace mg/dL (Neg-Trace); Specific Gravity,Urine > 1.030 (1.010-1.025); Urobilinogen,Urine Normal (Normal)
[2020-07-10] MEDS ORDERED: Naloxone 0.4 MG/ML INJ IVP PRN (12:58)
[2020-07-10] MEDS ORDERED: *HR* LORazepam 2 MG/ML VIAL IVP PRN (13:02)
[2020-07-10] MEDS ORDERED: D5% in 0.45% NACL 1,000 ML IVC SCH (13:15)
[2020-07-10] MEDS ORDERED: D5% in Water 1,000 ML IVC PRN (13:32)
[2020-07-10] MEDS ORDERED: *HR* Dextrose 50 % in Water (Vial) 50 ML VIAL IVP PRN (13:32)
[2020-07-10] MEDS ORDERED: Dextrose Gel 15 GM/37.5 ML TUBE PO PRN ×2 (13:32)
[2020-07-10] MEDS ORDERED: *HR* FentaNYL PATCH 50 MCG PATCH TD SCH (14:55)
[2020-07-10] MEDS: Ringers Solution, Lactated 1,000 ML IVC SCH (15:49)
[2020-07-10] MEDS: *HR* Heparin 5,000 UNIT/ML VIAL SQ SCH (18:21)
[2020-07-10] MEDS: Insulin LISPRO 300 UNITS/3 ML VIAL SUBQ SCH (18:23)
[2020-07-10] MEDS ORDERED: Acetaminophen IV 1,000 MG/100 ML BAG IVPB ONE (19:19)
[2020-07-10] MEDS: Ondansetron 4 MG/2 ML VIAL IVP PRN (19:37)
[2020-07-11] MEDS: Insulin LISPRO 300 UNITS/3 ML VIAL SUBQ SCH ×3 (00:08→12:31)
[2020-07-11] MEDS: Ringers Solution, Lactated 1,000 ML IVC SCH (03:33)
[2020-07-11] MEDS: *HR* Heparin 5,000 UNIT/ML VIAL SQ SCH ×2 (05:34→19:00)
[2020-07-11] MEDS: Ondansetron 4 MG/2 ML VIAL IVP PRN (05:34)
[2020-07-11] MEDS ORDERED: Acetaminophen IV 1,000 MG/100 ML BAG IVPB ONE (06:13)
[2020-07-11 07:03] LABS: Hematocrit 45.3 % (35.3-44.9); Mean Corpuscular HGB Conc 31.8 g/dL (31.6-35.5); Mean Corpuscular Hemoglobin 29.6 pg (28.0-33.3); Mean Corpuscular Volume 93.2 fL (83.0-100.0); Mean Platelet Volume 9.9 fL (9.4-12.4); Platelet Count 253 K/mcL (140-400); Red Blood Count 4.86 M/mcL (3.82-4.97); Red Cell Distribution Width 14.1 % (11.5-14.5); White Blood Count 9.9 K/mcL (4.3-11.1)
[2020-07-11 07:04] LABS: Hemoglobin 14.4 g/dL (11.5-15.4)
[2020-07-11 07:27] LABS: BUN/Creatinine Ratio 50 (6-26); Blood Urea Nitrogen 26 mg/dL (8-23); Carbon Dioxide 23 mEq/L (23-29); Chloride 106 mEq/L (98-107); Glucose 107 mg/dL (70-105); Magnesium 2.2 mg/dL (1.6-2.6); Osmolality,Calculated 293 (280-300); Phosphorous 2.3 mg/dL (2.7-4.5); Potassium 3.4 mEq/L (3.5-5.1); Sodium 139 mEq/L (136-145); eGFR For African Americans > 60 (> 60); eGFR For Non-African Americans > 60 (> 60)
[2020-07-11] MEDS ORDERED: Chloraseptic Spray 177 ML BOTTLE MM PRN ×2 (08:20→21:09)
[2020-07-11] MEDS ORDERED: Saliva Stimulant 44.3ml BOTTLE PO PRN ×2 (08:20→21:09)
[2020-07-11] MEDS ORDERED: Pantoprazole 40 MG VIAL IVP SCH (09:00)
[2020-07-11] MEDS ORDERED: Ketorolac 15 MG/ML VIAL IVP ONE (11:17)
[2020-07-11] MEDS: Acetaminophen IV 1,000 MG/100 ML BAG IVPB SCH ×2 (12:01→23:29)
[2020-07-11] MEDS ORDERED: Potassium Phosphate 44 MEQ in 0.9 % Sodium Chloride 250 ML IVPB ONE (12:41)
[2020-07-11] MEDS ORDERED: Ondansetron 4 MG/2 ML VIAL ONE (17:26)
[2020-07-11] MEDS ORDERED: Dexamethasone 4 MG/ML VIAL ONE (17:26)
[2020-07-11] MEDS ORDERED: Lidocaine -MPF 2% 2 ML VIAL ONE (17:26)
[2020-07-11] MEDS ORDERED: *HR* FentaNYL (PF) 100 MCG/2 ML VIAL ONE (17:27)
[2020-07-11] MEDS ORDERED: *HR* Propofol 200 MG/20 ML VIAL IVP ONE (17:27)
[2020-07-11] MEDS ORDERED: Acetaminophen IV 1,000 MG/100 ML BAG IVPB SCH (18:00)
[2020-07-11] MEDS ORDERED: Ondansetron 4 MG/2 ML VIAL IVP PRN ×2 (18:08→21:09)
[2020-07-11] MEDS ORDERED: *HR* HYDROcodone/Acet 7.5/325 mg TABLET PO PRN ×2 (18:08→21:09)
[2020-07-11] MEDS ORDERED: *HR* PHENYLEPHRINE 1,000 MCG/10 ML SYRINGE IVP ONE (18:42)
[2020-07-11] MEDS ORDERED: cefOXitin 2,000 MG in Water for inj. (sterile) 20 ML IVP ONE ×2 (19:02→21:09)
[2020-07-11] MEDS ORDERED: Sugammadex Sodium 200 MG/2 ML VIAL IV ONE (19:12)
[2020-07-11] MEDS ORDERED: *HR* HYDROmorphone (PF) 1 MG/ML SYRINGE IVP PRN (19:34)
[2020-07-11] MEDS: *HR* FentaNYL (PF) 100 MCG/2 ML VIAL IVP PRN ×2 (19:51→20:06)
[2020-07-11] MEDS: Promethazine 6.25 MG in Water for inj. (sterile) 20 ML IVPB PRN ×2 (19:55→20:17)
[2020-07-11] MEDS ORDERED: Dextrose Gel 15 GM/37.5 ML TUBE PO PRN ×2 (21:09)
[2020-07-11] MEDS ORDERED: Naloxone 0.4 MG/ML INJ IVP PRN (21:09)
[2020-07-11] MEDS ORDERED: *HR* FentaNYL (PF) 100 MCG/2 ML VIAL IVP PRN (21:09)
[2020-07-11] MEDS ORDERED: D5% in Water 1,000 ML IVC PRN (21:09)
[2020-07-12] MEDS: Insulin LISPRO 300 UNITS/3 ML VIAL SUBQ SCH ×5 (00:23→20:31)
[2020-07-12] MEDS: *HR* HYDROmorphone (PF) 1 MG/ML SYRINGE IVP PRN ×2 (02:18→23:12)
[2020-07-12] MEDS: Acetaminophen IV 1,000 MG/100 ML BAG IVPB SCH ×4 (05:34→19:06)
[2020-07-12] MEDS: *HR* Heparin 5,000 UNIT/ML VIAL SQ SCH ×2 (05:34→18:59)
[2020-07-12 07:09] LABS: Basophils % 0.2 %; Hemoglobin 14.3 g/dL (11.5-15.4); Immature Granulocytes % 0.2 % (0-4); Lymphocytes # 0.6 K/mcL (0.6-4.6); Mean Corpuscular HGB Conc 31.1 g/dL (31.6-35.5); Mean Corpuscular Hemoglobin 29.9 pg (28.0-33.3); Monocytes # 0.6 K/mcL (0.0-1.3); Monocytes % 4.7 %; Neutrophils # 11.4 K/mcL (1.6-8.9); Platelet Count 239 K/mcL (140-400); Red Blood Count 4.79 M/mcL (3.82-4.97); Red Cell Distribution Width 14.5 % (11.5-14.5); Segmented Neutrophils % 89.9 %; White Blood Count 12.7 K/mcL (4.3-11.1)
[2020-07-12 07:55] LABS: BUN/Creatinine Ratio 54 (6-26); Blood Urea Nitrogen 34 mg/dL (8-23); Calcium 8.9 mg/dL (8.6-10.3); Carbon Dioxide 24 mEq/L (23-29); Chloride 108 mEq/L (98-107); Glucose 87 mg/dL (70-105); Osmolality,Calculated 303 (280-300); Potassium 3.2 mEq/L (3.5-5.1); Sodium 143 mEq/L (136-145); eGFR For African Americans > 60 (> 60); eGFR For Non-African Americans > 60 (> 60)
[2020-07-12] MEDS: Pantoprazole 40 MG VIAL IVP SCH (09:29)
[2020-07-12] MEDS: 0.9 % Sodium Chloride 1,000 ML IVC SCH ×2 (09:30→23:08)
[2020-07-12] MEDS ORDERED: Morphine Sulfate 2 MG/ML SYRINGE IVP ONE (11:06)
[2020-07-12] MEDS: *HR* Dextrose 50 % in Water (Vial) 50 ML VIAL IVP PRN (16:46)
[2020-07-12] MEDS: MetroNIDAZOLE 500 MG/100 ML 500 MG/100 ML BAG IVPB SCH (16:52)
[2020-07-12] MEDS ORDERED: Melatonin 3 MG TABLET PO ONE (22:06)
[2020-07-13] MEDS: Insulin LISPRO 300 UNITS/3 ML VIAL SUBQ SCH ×4 (00:01→16:56)
[2020-07-13] MEDS: Acetaminophen IV 1,000 MG/100 ML BAG IVPB SCH ×4 (00:04→16:54)
[2020-07-13] MEDS: MetroNIDAZOLE 500 MG/100 ML 500 MG/100 ML BAG IVPB SCH ×4 (00:05→23:40)
[2020-07-13] MEDS: Ondansetron 4 MG/2 ML VIAL IVP PRN (03:04)
[2020-07-13] MEDS: *HR* HYDROmorphone (PF) 1 MG/ML SYRINGE IVP PRN (03:46)
[2020-07-13] MEDS: *HR* LORazepam 2 MG/ML VIAL IVP PRN ×2 (04:10→21:17)
[2020-07-13 05:15] LABS: Basophils % 0.2 %; Eosinophils # 0.1 K/mcL (0.0-0.6); Eosinophils % 1.3 %; Hematocrit 41.1 % (35.3-44.9); Hemoglobin 12.9 g/dL (11.5-15.4); Immature Granulocytes % 0.4 % (0-4); Lymphocytes # 0.7 K/mcL (0.6-4.6); Lymphocytes % 8.1 %; Mean Corpuscular HGB Conc 31.4 g/dL (31.6-35.5); Mean Corpuscular Hemoglobin 30.4 pg (28.0-33.3); Mean Corpuscular Volume 96.7 fL (83.0-100.0); Mean Platelet Volume 10.4 fL (9.4-12.4); Monocytes # 0.5 K/mcL (0.0-1.3); Monocytes % 6.1 %; Neutrophils # 7.1 K/mcL (1.6-8.9); Platelet Count 193 K/mcL (140-400); Red Blood Count 4.25 M/mcL (3.82-4.97); Red Cell Distribution Width 14.8 % (11.5-14.5); Segmented Neutrophils % 83.9 %; White Blood Count 8.5 K/mcL (4.3-11.1)
[2020-07-13 05:24] LABS: BUN/Creatinine Ratio 55 (6-26); Blood Urea Nitrogen 26 mg/dL (8-23); Calcium 8.7 mg/dL (8.6-10.3); Carbon Dioxide 23 mEq/L (23-29); Chloride 109 mEq/L (98-107); Glucose 83 mg/dL (70-105); Osmolality,Calculated 298 (280-300); Potassium 3.5 mEq/L (3.5-5.1); Sodium 142 mEq/L (136-145); eGFR For African Americans > 60 (> 60); eGFR For Non-African Americans > 60 (> 60)
[2020-07-13] MEDS: *HR* Heparin 5,000 UNIT/ML VIAL SQ SCH ×2 (05:39→16:55)
[2020-07-13] MEDS: *HR* Dextrose 50 % in Water (Vial) 50 ML VIAL IVP PRN ×2 (05:54→16:53)
[2020-07-13] MEDS: Pantoprazole 40 MG VIAL IVP SCH (07:09)
[2020-07-13] MEDS: 0.9 % Sodium Chloride 1,000 ML IVC SCH ×2 (11:10→16:09)
[2020-07-13] MEDS: Morphine Sulfate 2 MG/ML SYRINGE IVP PRN ×2 (12:41→16:56)
[2020-07-14] MEDS: Insulin LISPRO 300 UNITS/3 ML VIAL SUBQ SCH ×5 (00:24→23:44)
[2020-07-14] MEDS: *HR* Heparin 5,000 UNIT/ML VIAL SQ SCH ×2 (04:57→17:42)
[2020-07-14] MEDS: Acetaminophen IV 1,000 MG/100 ML BAG IVPB SCH ×4 (04:57→23:29)
[2020-07-14] MEDS: 0.9 % Sodium Chloride 1,000 ML IVC SCH ×2 (05:00→17:42)
[2020-07-14] MEDS ORDERED: Acetaminophen IV 1,000 MG/100 ML BAG IVPB SCH (06:00)
[2020-07-14 06:51] LABS: Basophils % 0.4 %; Eosinophils # 0.3 K/mcL (0.0-0.6); Eosinophils % 4.2 %; Hematocrit 38.3 % (35.3-44.9); Immature Granulocytes % 0.4 % (0-4); Lymphocytes # 0.7 K/mcL (0.6-4.6); Lymphocytes % 9.4 %; Mean Corpuscular HGB Conc 31.3 g/dL (31.6-35.5); Mean Corpuscular Hemoglobin 29.5 pg (28.0-33.3); Mean Corpuscular Volume 94.1 fL (83.0-100.0); Mean Platelet Volume 10.3 fL (9.4-12.4); Monocytes # 0.4 K/mcL (0.0-1.3); Neutrophils # 5.9 K/mcL (1.6-8.9); Platelet Count 199 K/mcL (140-400); Red Blood Count 4.07 M/mcL (3.82-4.97); Red Cell Distribution Width 14.7 % (11.5-14.5); Segmented Neutrophils % 80.6 %; White Blood Count 7.4 K/mcL (4.3-11.1)
[2020-07-14 07:11] LABS: BUN/Creatinine Ratio 35 (6-26); Blood Urea Nitrogen 15 mg/dL (8-23); Calcium 8.4 mg/dL (8.6-10.3); Carbon Dioxide 25 mEq/L (23-29); Chloride 106 mEq/L (98-107); Glucose 95 mg/dL (70-105); Osmolality,Calculated 291 (280-300); Sodium 140 mEq/L (136-145); eGFR For African Americans > 60 (> 60); eGFR For Non-African Americans > 60 (> 60)
[2020-07-14] MEDS: Pantoprazole 40 MG VIAL IVP SCH (08:51)
[2020-07-14] MEDS: MetroNIDAZOLE 500 MG/100 ML 500 MG/100 ML BAG IVPB SCH ×2 (08:52→16:30)
[2020-07-14] MEDS: *HR* OxyCODONE Immed Rel 5 MG TABLET PO PRN ×2 (14:28→19:36)
[2020-07-14] MEDS: *HR* LORazepam 2 MG/ML VIAL IVP PRN (16:09)
[2020-07-14] MEDS: Ondansetron 4 MG/2 ML VIAL IVP PRN (21:33)
[2020-07-15] MEDS: MetroNIDAZOLE 500 MG/100 ML 500 MG/100 ML BAG IVPB SCH ×2 (01:11→08:07)
[2020-07-15] MEDS: Acetaminophen IV 1,000 MG/100 ML BAG IVPB SCH (05:01)
[2020-07-15] MEDS: *HR* Heparin 5,000 UNIT/ML VIAL SQ SCH (05:02)
[2020-07-15] MEDS: Prochlorperazine 10 MG/2 ML VIAL IVP PRN ×2 (05:02→18:33)
[2020-07-15 06:12] LABS: Basophils % 0.5 %; Eosinophils # 0.2 K/mcL (0.0-0.6); Eosinophils % 3.2 %; Hematocrit 38.4 % (35.3-44.9); Hemoglobin 12.4 g/dL (11.5-15.4); Immature Granulocytes % 0.4 % (0-4); Lymphocytes # 0.7 K/mcL (0.6-4.6); Lymphocytes % 12.6 %; Mean Corpuscular HGB Conc 32.3 g/dL (31.6-35.5); Mean Corpuscular Hemoglobin 29.8 pg (28.0-33.3); Mean Corpuscular Volume 92.3 fL (83.0-100.0); Mean Platelet Volume 9.9 fL (9.4-12.4); Monocytes # 0.4 K/mcL (0.0-1.3); Monocytes % 6.2 %; Neutrophils # 4.4 K/mcL (1.6-8.9); Platelet Count 233 K/mcL (140-400); Red Blood Count 4.16 M/mcL (3.82-4.97); Red Cell Distribution Width 14.6 % (11.5-14.5); Segmented Neutrophils % 77.1 %; White Blood Count 5.6 K/mcL (4.3-11.1)
[2020-07-15 06:30] LABS: BUN/Creatinine Ratio 22 (6-26); Blood Urea Nitrogen 9 mg/dL (8-23); Calcium 8.4 mg/dL (8.6-10.3); Carbon Dioxide 25 mEq/L (23-29); Chloride 105 mEq/L (98-107); Glucose 116 mg/dL (70-105); Osmolality,Calculated 288 (280-300); Potassium 3.2 mEq/L (3.5-5.1); Sodium 139 mEq/L (136-145); eGFR For African Americans > 60 (> 60); eGFR For Non-African Americans > 60 (> 60)
[2020-07-15] MEDS: *HR* LORazepam 2 MG/ML VIAL IVP PRN (08:06)
[2020-07-15] MEDS: Pantoprazole 40 MG VIAL IVP SCH ×2 (08:07→17:15)
[2020-07-15] MEDS: Insulin LISPRO 300 UNITS/3 ML VIAL SUBQ SCH ×4 (08:47→20:52)
[2020-07-15] MEDS ORDERED: *HR* HYDROcodone/Acet 5/325 mg TABLET PO PRN (09:22)
[2020-07-15] MEDS ORDERED: Ibuprofen 600 MG TABLET PO PRN (09:23)
[2020-07-15] MEDS ORDERED: Potassium Chloride Elixir 20 MEQ/15 ML UDC PO ONE (12:08)
[2020-07-15] MEDS: Ondansetron ODT 4 MG TAB.RAPDIS SL PRN (13:29)
[2020-07-15] MEDS: *HR* HYDROcodone/Acet 5/325 mg TABLET PO PRN (15:05)
[2020-07-15] MEDS ORDERED: Acetaminophen 325 MG TABLET PO PRN (17:26)
[2020-07-15] MEDS ORDERED: Prochlorperazine 10 MG/2 ML VIAL IVP PRN (17:27)
[2020-07-15] MEDS: *HR* OxyCODONE Immed Rel 5 MG TABLET PO PRN ×2 (17:44→22:21)
[2020-07-16] MEDS: *HR* OxyCODONE Immed Rel 5 MG TABLET PO PRN (04:24)
[2020-07-16 05:26] LABS: Basophils % 0.5 %; Eosinophils # 0.3 K/mcL (0.0-0.6); Eosinophils % 4.5 %; Hematocrit 40.5 % (35.3-44.9); Immature Granulocytes % 0.8 % (0-4); Lymphocytes % 16.2 %; Mean Corpuscular HGB Conc 32.1 g/dL (31.6-35.5); Mean Corpuscular Hemoglobin 30.3 pg (28.0-33.3); Mean Corpuscular Volume 94.4 fL (83.0-100.0); Mean Platelet Volume 9.8 fL (9.4-12.4); Monocytes # 0.5 K/mcL (0.0-1.3); Monocytes % 8.2 %; Neutrophils # 4.3 K/mcL (1.6-8.9); Platelet Count 249 K/mcL (140-400); Red Blood Count 4.29 M/mcL (3.82-4.97); Red Cell Distribution Width 14.6 % (11.5-14.5); Segmented Neutrophils % 69.8 %; White Blood Count 6.2 K/mcL (4.3-11.1)
[2020-07-16 05:36] LABS: BUN/Creatinine Ratio 23 (6-26); Blood Urea Nitrogen 10 mg/dL (8-23); Calcium 8.6 mg/dL (8.6-10.3); Carbon Dioxide 24 mEq/L (23-29); Chloride 102 mEq/L (98-107); Glucose 91 mg/dL (70-105); Osmolality,Calculated 287 (280-300); Potassium 3.3 mEq/L (3.5-5.1); Sodium 139 mEq/L (136-145); eGFR For African Americans > 60 (> 60); eGFR For Non-African Americans > 60 (> 60)
[2020-07-16] MEDS: Pantoprazole 40 MG VIAL IVP SCH ×2 (06:03→17:23)
[2020-07-16] MEDS: Insulin LISPRO 300 UNITS/3 ML VIAL SUBQ SCH ×4 (08:52→21:03)
[2020-07-16] MEDS: *HR* LORazepam 2 MG/ML VIAL IVP PRN (08:53)
[2020-07-16] MEDS: Metoclopramide 10 MG/2 ML VIAL IVP SCH ×2 (08:54→15:14)
[2020-07-16] MEDS: Ondansetron ODT 4 MG TAB.RAPDIS SL PRN (08:54)
[2020-07-16] MEDS: *HR* HYDROcodone/Acet 5/325 mg TABLET PO PRN (08:59)
[2020-07-16] MEDS ORDERED: Potassium Chloride Elixir 20 MEQ/15 ML UDC PO ONE (14:03)
[2020-07-16] MEDS: *HR* Heparin 5,000 UNIT/ML VIAL SQ SCH (21:05)
[2020-07-17] MEDS: Pantoprazole 40 MG VIAL IVP SCH ×2 (05:28→18:10)
[2020-07-17] MEDS: *HR* Heparin 5,000 UNIT/ML VIAL SQ SCH ×2 (05:44→18:11)
[2020-07-17 06:22] LABS: Basophils % 0.5 %; Eosinophils # 0.1 K/mcL (0.0-0.6); Eosinophils % 1.7 %; Immature Granulocytes % 1.3 % (0-4); Lymphocytes # 0.8 K/mcL (0.6-4.6); Lymphocytes % 10.6 %; Mean Corpuscular HGB Conc 32.6 g/dL (31.6-35.5); Mean Corpuscular Hemoglobin 29.7 pg (28.0-33.3); Mean Corpuscular Volume 91.1 fL (83.0-100.0); Mean Platelet Volume 10.1 fL (9.4-12.4); Monocytes # 0.6 K/mcL (0.0-1.3); Platelet Count 327 K/mcL (140-400); Red Blood Count 4.72 M/mcL (3.82-4.97); Red Cell Distribution Width 14.5 % (11.5-14.5); Segmented Neutrophils % 77.9 %; White Blood Count 7.7 K/mcL (4.3-11.1)
[2020-07-17 06:39] LABS: BUN/Creatinine Ratio 19 (6-26); Blood Urea Nitrogen 9 mg/dL (8-23); Calcium 9.5 mg/dL (8.6-10.3); Carbon Dioxide 27 mEq/L (23-29); Chloride 99 mEq/L (98-107); Glucose 107 mg/dL (70-105); Osmolality,Calculated 287 (280-300); Potassium 3.8 mEq/L (3.5-5.1); Sodium 139 mEq/L (136-145); eGFR For African Americans > 60 (> 60); eGFR For Non-African Americans > 60 (> 60)
[2020-07-17 07:22] LABS: ABG Base Excess 3 mEq/L (-2 to 3); ABG HCO3 27 mEq/L (21-27); ABG Oxygen Saturation 98 % (95-98); ABG PCO2 38 mmHg (35-45); ABG PH 7.46 pH Units (7.32-7.45); ABG PO2 91 mmHg (85-104); ABG TCO2 28 mEq/L (20-26)
[2020-07-17] MEDS: Insulin LISPRO 300 UNITS/3 ML VIAL SUBQ SCH ×3 (12:47→17:12)
[2020-07-17] MEDS: Acetaminophen IV 1,000 MG/100 ML BAG IVPB SCH (14:50)
[2020-07-17] MEDS ORDERED: haloperidoL 1 MG TABLET PO SCH (18:08)
[2020-07-17] MEDS ORDERED: QUEtiapine Fumarate 25 MG TABLET PO SCH (21:00)
[2020-07-18] MEDS: Insulin LISPRO 300 UNITS/3 ML VIAL SUBQ SCH ×4 (03:19→17:35)
[2020-07-18] MEDS: QUEtiapine Fumarate 25 MG TABLET PO SCH ×2 (03:19→20:46)
[2020-07-18] MEDS: Acetaminophen IV 1,000 MG/100 ML BAG IVPB SCH ×2 (03:27→05:26)
[2020-07-18] MEDS: Pantoprazole 40 MG VIAL IVP SCH (05:25)
[2020-07-18] MEDS: *HR* Heparin 5,000 UNIT/ML VIAL SQ SCH ×2 (05:25→17:36)
[2020-07-18 05:48] LABS: Basophils % 0.3 %; Eosinophils # 0.1 K/mcL (0.0-0.6); Eosinophils % 0.8 %; Hematocrit 39.8 % (35.3-44.9); Immature Granulocytes % 1.1 % (0-4); Lymphocytes % 9.9 %; Mean Corpuscular HGB Conc 32.7 g/dL (31.6-35.5); Mean Corpuscular Hemoglobin 29.8 pg (28.0-33.3); Mean Corpuscular Volume 91.3 fL (83.0-100.0); Mean Platelet Volume 9.7 fL (9.4-12.4); Monocytes # 0.8 K/mcL (0.0-1.3); Monocytes % 7.9 %; Neutrophils # 8.3 K/mcL (1.6-8.9); Platelet Count 394 K/mcL (140-400); Red Blood Count 4.36 M/mcL (3.82-4.97); Red Cell Distribution Width 14.8 % (11.5-14.5); White Blood Count 10.3 K/mcL (4.3-11.1)
[2020-07-18 05:58] LABS: Estimated Average Glucose 117 mg/dl; Hemoglobin A1C 5.7 %
[2020-07-18 06:06] LABS: Alanine Aminotransferase 16 Units/L (7-52); Albumin 3.6 g/dL (3.5-5.7); Albumin/Globulin Ratio 1.3 (1.1-2.2); Alkaline Phosphatase 62 Units/L (34-104); Aspartate Amino Transferase 19 Units/L (13-39); BUN/Creatinine Ratio 37 (6-26); Bilirubin,Total 0.5 mg/dL (0.3-1.0); Blood Urea Nitrogen 19 mg/dL (8-23); Calcium 9.4 mg/dL (8.6-10.3); Carbon Dioxide 24 mEq/L (23-29); Chloride 100 mEq/L (98-107); Globulin 2.7 g/dL (2.4-3.5); Glucose 107 mg/dL (70-105); Magnesium 2.1 mg/dL (1.6-2.6); Osmolality,Calculated 293 (280-300); Phosphorous 3.5 mg/dL (2.7-4.5); Potassium 3.8 mEq/L (3.5-5.1); Sodium 140 mEq/L (136-145); Total Protein 6.3 g/dL (6.4-8.9); eGFR For African Americans > 60 (> 60); eGFR For Non-African Americans > 60 (> 60)
[2020-07-18 06:17] LABS: Thyroid Stimulating Hormone 1.861 mcIU/mL (0.340-5.600)
[2020-07-18 06:27] LABS: Folate 20.6 ng/mL (3.0-16.0)
[2020-07-18] MEDS: carvediloL 6.25 MG TABLET PO SCH ×2 (08:13→17:36)
[2020-07-18] MEDS: Multivit/Ca/Min/Fe/FA 1 TAB TABLET PO SCH (08:13)
[2020-07-19] MEDS: Insulin LISPRO 300 UNITS/3 ML VIAL SUBQ SCH ×5 (00:56→21:47)
[2020-07-19] MEDS: *HR* Heparin 5,000 UNIT/ML VIAL SQ SCH ×2 (06:04→17:29)
[2020-07-19 06:37] LABS: Basophils % 0.3 %; Eosinophils # 0.1 K/mcL (0.0-0.6); Eosinophils % 0.7 %; Hematocrit 38.6 % (35.3-44.9); Hemoglobin 12.6 g/dL (11.5-15.4); Immature Granulocytes % 1.2 % (0-4); Lymphocytes # 1.2 K/mcL (0.6-4.6); Lymphocytes % 11.8 %; Mean Corpuscular HGB Conc 32.6 g/dL (31.6-35.5); Mean Corpuscular Hemoglobin 30.3 pg (28.0-33.3); Mean Corpuscular Volume 92.8 fL (83.0-100.0); Mean Platelet Volume 10.3 fL (9.4-12.4); Monocytes # 0.9 K/mcL (0.0-1.3); Monocytes % 8.6 %; Neutrophils # 7.7 K/mcL (1.6-8.9); Platelet Count 392 K/mcL (140-400); Red Blood Count 4.16 M/mcL (3.82-4.97); Segmented Neutrophils % 77.4 %
[2020-07-19] MEDS: Multivit/Ca/Min/Fe/FA 1 TAB TABLET PO SCH ×2 (07:58→08:05)
[2020-07-19] MEDS: carvediloL 6.25 MG TABLET PO SCH ×2 (07:59→17:29)
[2020-07-19 08:55] LABS: Alanine Aminotransferase 13 Units/L (7-52); Albumin 3.8 g/dL (3.5-5.7); Albumin/Globulin Ratio 1.5 (1.1-2.2); Alkaline Phosphatase 63 Units/L (34-104); Aspartate Amino Transferase 16 Units/L (13-39); BUN/Creatinine Ratio 54 (6-26); Bilirubin,Total 0.6 mg/dL (0.3-1.0); Blood Urea Nitrogen 27 mg/dL (8-23); Calcium 9.6 mg/dL (8.6-10.3); Carbon Dioxide 26 mEq/L (23-29); Chloride 101 mEq/L (98-107); Globulin 2.6 g/dL (2.4-3.5); Glucose 107 mg/dL (70-105); Osmolality,Calculated 298 (280-300); Phosphorous 3.2 mg/dL (2.7-4.5); Potassium 3.8 mEq/L (3.5-5.1); Sodium 141 mEq/L (136-145); Total Protein 6.4 g/dL (6.4-8.9); eGFR For African Americans > 60 (> 60); eGFR For Non-African Americans > 60 (> 60)
[2020-07-19] MEDS: haloperidoL 1 MG TABLET PO SCH ×2 (14:03→20:12)
[2020-07-19] MEDS: QUEtiapine Fumarate 25 MG TABLET PO SCH (20:12)
[2020-07-19] MEDS: *HR* Dextrose 50 % in Water (Vial) 50 ML VIAL IVP PRN (20:19)
[2020-07-20] MEDS: *HR* Heparin 5,000 UNIT/ML VIAL SQ SCH ×2 (05:36→16:31)
[2020-07-20] MEDS: Insulin LISPRO 300 UNITS/3 ML VIAL SUBQ SCH ×4 (08:32→21:45)
[2020-07-20] MEDS: haloperidoL 1 MG TABLET PO SCH ×3 (08:33→21:44)
[2020-07-20] MEDS: Multivit/Ca/Min/Fe/FA 1 TAB TABLET PO SCH (08:33)
[2020-07-20] MEDS: carvediloL 6.25 MG TABLET PO SCH ×2 (08:33→16:24)
[2020-07-20 09:04] LABS: Basophils % 0.3 %; Eosinophils # 0.1 K/mcL (0.0-0.6); Eosinophils % 0.5 %; Hemoglobin 12.7 g/dL (11.5-15.4); Lymphocytes # 0.9 K/mcL (0.6-4.6); Mean Corpuscular HGB Conc 32.6 g/dL (31.6-35.5); Mean Corpuscular Hemoglobin 30.5 pg (28.0-33.3); Mean Corpuscular Volume 93.8 fL (83.0-100.0); Mean Platelet Volume 9.6 fL (9.4-12.4); Monocytes % 10.3 %; Neutrophils # 7.2 K/mcL (1.6-8.9); Platelet Count 494 K/mcL (140-400); Red Blood Count 4.16 M/mcL (3.82-4.97); Red Cell Distribution Width 15.1 % (11.5-14.5); Segmented Neutrophils % 77.9 %; White Blood Count 9.2 K/mcL (4.3-11.1)
[2020-07-20 09:28] LABS: Alanine Aminotransferase 11 Units/L (7-52); Albumin 3.7 g/dL (3.5-5.7); Albumin/Globulin Ratio 1.4 (1.1-2.2); Alkaline Phosphatase 63 Units/L (34-104); Aspartate Amino Transferase 13 Units/L (13-39); BUN/Creatinine Ratio 48 (6-26); Bilirubin,Total 0.7 mg/dL (0.3-1.0); Blood Urea Nitrogen 25 mg/dL (8-23); Calcium 9.3 mg/dL (8.6-10.3); Carbon Dioxide 28 mEq/L (23-29); Chloride 102 mEq/L (98-107); Globulin 2.7 g/dL (2.4-3.5); Glucose 102 mg/dL (70-105); Magnesium 2.1 mg/dL (1.6-2.6); Osmolality,Calculated 299 (280-300); Phosphorous 3.2 mg/dL (2.7-4.5); Potassium 3.2 mEq/L (3.5-5.1); Sodium 142 mEq/L (136-145); Total Protein 6.4 g/dL (6.4-8.9); eGFR For African Americans > 60 (> 60); eGFR For Non-African Americans > 60 (> 60)
[2020-07-20] MEDS ORDERED: Haloperidol Lactate 5 MG/ML VIAL IVP ONE (12:26)
[2020-07-20] MEDS: Ringers Solution, Lactated 1,000 ML IVC SCH (13:51)
[2020-07-20 14:34] LABS: Bacteria,Urine Few per hpf (None-Few); Bilirubin,Urine Negative (Negative); Blood,Urine Negative (Negative); Clarity,Urine Clear (Clear); Color,Urine Yellow (Yellow); Glucose,Urine (UA) Normal (Normal); Hyaline Casts,Urine Few per lpf (None Seen); Ketones,Urine 20 mg/dL (Negative); Leukocyte Esterase,Urine Moderate (Negative); Mucus,Urine Few per lpf (None-Few); Nitrite,Urine Negative (Negative); Protein,Urine 30 mg/dL (Neg-Trace); RBC,Urine 0-3 per hpf (0-3); Specific Gravity,Urine 1.028 (1.010-1.025); Squamous Epithelial Cell,Urine Few per hpf (None-Few); Urobilinogen,Urine Normal (Normal); WBC,Urine 30-50 per hpf (0-3)
[2020-07-20] MEDS: cefTRIAXone 1,000 MG in 0.9 % Sodium Chloride Mini Bag 100 ML IVPB SCH (16:31)
[2020-07-20] MEDS: QUEtiapine Fumarate 25 MG TABLET PO SCH (21:45)
[2020-07-21] MEDS: Ringers Solution, Lactated 1,000 ML IVC SCH (04:09)
[2020-07-21] MEDS: *HR* Heparin 5,000 UNIT/ML VIAL SQ SCH ×2 (06:37→16:54)
[2020-07-21 07:22] LABS: Basophils % 0.4 %; Eosinophils # 0.1 K/mcL (0.0-0.6); Eosinophils % 1.4 %; Hematocrit 36.4 % (35.3-44.9); Hemoglobin 11.5 g/dL (11.5-15.4); Immature Granulocytes % 1.1 % (0-4); Lymphocytes # 0.9 K/mcL (0.6-4.6); Lymphocytes % 11.3 %; Mean Corpuscular HGB Conc 31.6 g/dL (31.6-35.5); Mean Corpuscular Hemoglobin 30.2 pg (28.0-33.3); Mean Corpuscular Volume 95.5 fL (83.0-100.0); Mean Platelet Volume 9.7 fL (9.4-12.4); Monocytes # 0.9 K/mcL (0.0-1.3); Monocytes % 10.3 %; Neutrophils # 6.3 K/mcL (1.6-8.9); Platelet Count 393 K/mcL (140-400); Red Blood Count 3.81 M/mcL (3.82-4.97); Red Cell Distribution Width 15.1 % (11.5-14.5); Segmented Neutrophils % 75.5 %; White Blood Count 8.3 K/mcL (4.3-11.1)
[2020-07-21 07:42] LABS: BUN/Creatinine Ratio 30 (6-26); Blood Urea Nitrogen 14 mg/dL (8-23); Calcium 8.4 mg/dL (8.6-10.3); Carbon Dioxide 28 mEq/L (23-29); Chloride 105 mEq/L (98-107); Glucose 112 mg/dL (70-105); Magnesium 1.7 mg/dL (1.6-2.6); Osmolality,Calculated 293 (280-300); Phosphorous 2.6 mg/dL (2.7-4.5); Potassium 3.6 mEq/L (3.5-5.1); Sodium 141 mEq/L (136-145); eGFR For African Americans > 60 (> 60); eGFR For Non-African Americans > 60 (> 60)
[2020-07-21] MEDS: Insulin LISPRO 300 UNITS/3 ML VIAL SUBQ SCH ×4 (08:06→21:36)
[2020-07-21] MEDS: cefTRIAXone 1,000 MG in 0.9 % Sodium Chloride Mini Bag 100 ML IVPB SCH (08:07)
[2020-07-21] MEDS: carvediloL 6.25 MG TABLET PO SCH ×2 (08:08→16:56)
[2020-07-21] MEDS: haloperidoL 1 MG TABLET PO SCH ×2 (08:08→20:07)
[2020-07-21] MEDS: Multivit/Ca/Min/Fe/FA 1 TAB TABLET PO SCH (08:08)
[2020-07-21] MEDS ORDERED: Potassium Phosphate 44 MEQ in 0.9 % Sodium Chloride 250 ML IVPB ONE (09:06)
[2020-07-21] MEDS: Calcium Gluconate 1gm/50mL 1 GM/50 ML BAG IVPB SCH ×2 (09:59→11:51)
[2020-07-21] MEDS: Acetaminophen 325 MG TABLET PO PRN (13:55)
[2020-07-21] MEDS: QUEtiapine Fumarate 25 MG TABLET PO SCH (20:07)
[2020-07-22 03:36] LABS: Basophils % 0.3 %; Eosinophils # 0.2 K/mcL (0.0-0.6); Eosinophils % 1.3 %; Hematocrit 37.5 % (35.3-44.9); Hemoglobin 12.2 g/dL (11.5-15.4); Immature Granulocytes % 0.7 % (0-4); Lymphocytes # 0.9 K/mcL (0.6-4.6); Lymphocytes % 7.2 %; Mean Corpuscular HGB Conc 32.5 g/dL (31.6-35.5); Mean Corpuscular Hemoglobin 30.3 pg (28.0-33.3); Mean Corpuscular Volume 93.1 fL (83.0-100.0); Mean Platelet Volume 9.9 fL (9.4-12.4); Monocytes # 0.7 K/mcL (0.0-1.3); Monocytes % 5.8 %; Platelet Count 466 K/mcL (140-400); Red Blood Count 4.03 M/mcL (3.82-4.97); Red Cell Distribution Width 15.2 % (11.5-14.5); Segmented Neutrophils % 84.7 %; White Blood Count 11.9 K/mcL (4.3-11.1)
[2020-07-22 03:51] LABS: BUN/Creatinine Ratio 24 (6-26); Blood Urea Nitrogen 13 mg/dL (8-23); Calcium 9.1 mg/dL (8.6-10.3); Carbon Dioxide 27 mEq/L (23-29); Chloride 103 mEq/L (98-107); Glucose 133 mg/dL (70-105); Magnesium 2.3 mg/dL (1.6-2.6); Osmolality,Calculated 288 (280-300); Phosphorous 3.9 mg/dL (2.7-4.5); Potassium 4.1 mEq/L (3.5-5.1); Sodium 138 mEq/L (136-145); eGFR For African Americans > 60 (> 60); eGFR For Non-African Americans > 60 (> 60)
[2020-07-22] MEDS: *HR* Heparin 5,000 UNIT/ML VIAL SQ SCH ×2 (05:36→17:49)
[2020-07-22] MEDS ORDERED: Ondansetron 4 MG/2 ML VIAL IVP ONE (05:42)
[2020-07-22] MEDS: Multivit/Ca/Min/Fe/FA 1 TAB TABLET PO SCH (08:48)
[2020-07-22] MEDS: haloperidoL 1 MG TABLET PO SCH ×2 (08:48→21:05)
[2020-07-22] MEDS: carvediloL 6.25 MG TABLET PO SCH ×2 (08:48→16:43)
[2020-07-22] MEDS: cefTRIAXone 1,000 MG in 0.9 % Sodium Chloride Mini Bag 100 ML IVPB SCH (09:11)
[2020-07-22] MEDS: Insulin LISPRO 300 UNITS/3 ML VIAL SUBQ SCH ×4 (10:37→20:47)
[2020-07-22] MEDS: Acetaminophen 325 MG TABLET PO PRN (16:42)
[2020-07-22] MEDS: QUEtiapine Fumarate 25 MG TABLET PO SCH (21:05)
[2020-07-23] MEDS: *HR* Heparin 5,000 UNIT/ML VIAL SQ SCH ×2 (05:35→17:39)
[2020-07-23 06:09] LABS: Basophils % 0.3 %; Eosinophils # 0.5 K/mcL (0.0-0.6); Eosinophils % 4.2 %; Hematocrit 36.6 % (35.3-44.9); Hemoglobin 11.7 g/dL (11.5-15.4); Immature Granulocytes % 0.7 % (0-4); Lymphocytes # 0.9 K/mcL (0.6-4.6); Lymphocytes % 7.8 %; Mean Corpuscular Hemoglobin 30.5 pg (28.0-33.3); Mean Corpuscular Volume 95.3 fL (83.0-100.0); Mean Platelet Volume 9.8 fL (9.4-12.4); Monocytes # 0.9 K/mcL (0.0-1.3); Monocytes % 7.8 %; Neutrophils # 8.7 K/mcL (1.6-8.9); Platelet Count 476 K/mcL (140-400); Red Blood Count 3.84 M/mcL (3.82-4.97); Red Cell Distribution Width 15.3 % (11.5-14.5); Segmented Neutrophils % 79.2 %
[2020-07-23 06:13] LABS: BUN/Creatinine Ratio 20 (6-26); Blood Urea Nitrogen 12 mg/dL (8-23); Calcium 9.2 mg/dL (8.6-10.3); Carbon Dioxide 28 mEq/L (23-29); Chloride 103 mEq/L (98-107); Glucose 123 mg/dL (70-105); Magnesium 2.2 mg/dL (1.6-2.6); Osmolality,Calculated 287 (280-300); Phosphorous 2.7 mg/dL (2.7-4.5); Potassium 3.9 mEq/L (3.5-5.1); Sodium 138 mEq/L (136-145); eGFR For African Americans > 60 (> 60); eGFR For Non-African Americans > 60 (> 60)
[2020-07-23] MEDS: Insulin LISPRO 300 UNITS/3 ML VIAL SUBQ SCH ×3 (08:19→17:36)
[2020-07-23] MEDS: Multivit/Ca/Min/Fe/FA 1 TAB TABLET PO SCH (08:31)
[2020-07-23] MEDS: haloperidoL 1 MG TABLET PO SCH (08:31)
[2020-07-23] MEDS: carvediloL 6.25 MG TABLET PO SCH ×2 (08:31→17:39)
[2020-07-23] MEDS: cefTRIAXone 1,000 MG in 0.9 % Sodium Chloride Mini Bag 100 ML IVPB SCH (08:32)
[2020-07-23] MEDS ORDERED: Sennosides/Docusate Sodium TABLET PO SCH (09:28)
[2020-07-23] MEDS: Acetaminophen 325 MG TABLET PO PRN (12:50)
[2020-07-23 15:48] VITALS: BP 127/77
[2020-07-23 16:03] LABS: Adenovirus Not Detected (Not Detect); Bordetella Pertussis Not Detected (Not Detect); Chlamydophila pneumoniae Not Detected (Not Detect); Coronavirus 229E Not Detected (Not Detect); Coronavirus HKU1 Not Detected (Not Detect); Coronavirus NL63 Not Detected (Not Detect); Coronavirus OC43 Not Detected (Not Detect); Human Metapneumovirus Not Detected (Not Detect); Human Rhinovirus/Enterovirus Not Detected (Not Detect); Influenza A Subtype 2009 H1 Not Detected (Not Detect); Influenza B Not Detected (Not Detect); Mycoplasma pneumoniae Not Detected (Not Detect); Parainfluenza Virus 1 Not Detected (Not Detect); Parainfluenza Virus 2 Not Detected (Not Detect); Parainfluenza Virus 3 Not Detected (Not Detect); Parainfluenza Virus 4 Not Detected (Not Detect); Respiratory Syncytial Virus Not Detected (Not Detect); SARS-CoV-2 Not Detected (Not Detect)
[2020-07-23] MEDS ORDERED: *HR* LORazepam 0.5 MG TABLET PO ONE (17:17)
== END 2020-07-23 19:01 | disposition other institution (70) | DRG 330 ==
LOC: EMEROOARM 09:39 → 3ANU 09:39 → SUATTDRO 16:25 → 3ANU 07-19 15:03
PROVIDERS: ADMIT Internal Medicine; ATTEND Internal Medicine